=== PATIENT | female | born 1960 | race Caucasian/White ===

== ENCOUNTER 2018-06-05 18:20 | Emergency (ER) | payer MEDICAID ==
[~2018-06-05] VITALS: Ht 152.4 cm; Wt 85.3 kg
[2018-06-05 18:29] VITALS: BP 125/55
--- NOTE | 2018-06-05 18:31 | NUR ---
[id number]
== END 2018-06-05 21:07 | disposition left against medical advice (07) ==
LOC: ER 18:21
DX: R06.02 Shortness of breath (principal); Z53.21 Procedure and treatment not carried out due to patient leaving prior to being seen by health care provider
CPT/HCPCS: 93005

== ENCOUNTER 2018-06-08 16:47 | Emergency (ER) | payer MEDICAID ==
[~2018-06-08] VITALS: Ht 154.9 cm; Wt 98.5 kg
[2018-06-08 18:00] LABS: BASOPHILS % (AUTO) 0.5 % (0-1); EOSINOPHILS # (AUTO) 0.2 X10'3 (0-0.9); EOSINOPHILS % (AUTO) 3.2 % (0-6); HEMATOCRIT 44.2 % (35.0-45.0); HEMOGLOBIN 15.1 g/dl (12.0-16.0); LYMPHOCYTES # (AUTO) 2.2 X10'3 (1.1-4.8); MEAN CORPUSCULAR HEMOGLOBIN 31.8 PG (27.0-31.0); MEAN CORPUSCULAR HGB CONC 34.1 g/dL (33.0-36.5); MEAN CORPUSCULAR VOLUME 93.1 FL (78-98); MEAN PLATELET VOLUME 9.1 FL (7.4-10.4); MONOCYTES # (AUTO) 0.7 X10'3 (0-0.9); MONOCYTES % (AUTO) 10.1 % (2-12); NEUTROPHILS # (AUTO) 3.4 X10'3 (1.8-7.7); NEUTROPHILS % (AUTO) 52.2 % (42-75); PLATELET COUNT 230 X10'3 (140-440); RED BLOOD COUNT 4.75 X10'6 (4.20-5.60); RED CELL DISTRIBUTION WIDTH 13.2 % (11.5-14.5); WHITE BLOOD COUNT 6.5 X10'3 (4.5-11.0)
[2018-06-08 18:13] LABS: ALANINE AMINOTRANSFERASE 52 U/L (12-78); ALBUMIN 3.5 G/DL (3.4-5.0); ALBUMIN/GLOBULIN RATIO 0.9 (1.1-1.5); ALKALINE PHOSPHATASE 63 IU/L (46-116); ANION GAP 9 (8-16); ASPARTATE AMINO TRANSFERASE 33 U/L (10-37); BILIRUBIN,TOTAL 0.3 MG/DL (0.1-1.0); BLOOD UREA NITROGEN 14 MG/DL (7-18); BUN/CREATININE RATIO 15.6 (6.6-38.0); CALCIUM 9.7 MG/DL (8.5-10.1); CHLORIDE 104 MMOL/L (99-107); GLUCOSE 154 MG/DL (70-104); POTASSIUM 4.4 MMOL/L (3.5-5.1); SODIUM 142 MMOL/L (135-145); TOTAL CARBON DIOXIDE 29.1 MMOL/L (24-32); TOTAL PROTEIN 7.4 G/DL (6.4-8.2); eGFR 64 ML/MIN
[2018-06-08] MEDS ORDERED: methylPREDNISolone sod succ 125mg/2ml vial IV ONE (18:15)
[2018-06-08] MEDS ORDERED: albuterol 2.5 MG/3 ML nebule CONTNEB PRN (18:15)
[2018-06-08] MEDS ORDERED: normal saline 1000ML IV soln IVB ONE (18:15)
[2018-06-08 20:14] VITALS: BP 137/87
[2018-06-08] MEDS ORDERED: PRED20TA PO (20:42)
[2018-06-08] MEDS ORDERED: ALBU6.7H INH (20:42)
[2018-06-08] MEDS ORDERED: AZIT250T2 PO (20:42)
== END 2018-06-08 21:00 | disposition home or self-care (01) ==
LOC: ER 16:47
DX: J20.9 Acute bronchitis, unspecified (principal); J44.1 Chronic obstructive pulmonary disease with (acute) exacerbation; R00.0 Tachycardia, unspecified; F17.200 Nicotine dependence, unspecified, uncomplicated; Z79.899 Other long term (current) drug therapy
CPT/HCPCS: 36415; 71046; 80053; 83605; 85025; 87040; 87502; 87503; 93005; 94644; 94760; 96374; 99285; J2930; J7030; 94640